=== PATIENT | male | born 1960 | race Caucasian/White ===

== ENCOUNTER 2016-12-22 00:04 | Emergency (ER) | payer OTHER ==
[2016-12-22] MEDS ORDERED: Haloperidol INJ IV/IM* 5 MG/ML AMP ONE (00:07)
[2016-12-22] MEDS ORDERED: diPHENhydraMINE IV* 50 MG/ML 1 ml VIAL (BENADRYL) ONE (00:07)
[2016-12-22] MEDS ORDERED: LORazepam INJ* 2 MG/ML 1 ML VIAL ONE (00:07)
[2016-12-22 00:30] VITALS: BP 194/77
--- NOTE | 2016-12-22 00:31 | ED ---
Meghann Gustafson SooYoung, scribed for Vito Fan MD on 12/22/16 at 0019 . Psychiatric Complaint - HPI Summary HPI Summary: LEVEL 5 CAVEAT - UNCOOPERATIVE A 56 y/o M presents to the ED brought in by police and EMS. Pt was found in parking lot of [facility], when pt arrived on scene, pt became agitated, spitting. He repeatedly hit his head against the police car. Pt brought in on 941. Pt restrained in ED. - History Of Current Complaint Time Seen by Provider: 12/22/16 00:12 Hx Obtained From: EMS, Other: - Police Onset/Duration: Still Present - Allergies/Home Medications Allergies/Adverse Reactions: Allergies Allergy/AdvReac Type Severity Reaction Status Date / Time No Known Allergies Allergy Verified 11/30/12 07:33 PMH/Surg Hx/FS Hx/Imm Hx Previously Healthy: No - Level 5 Caveat - Uncooperative Cardiovascular History: Denies: Other Cardiovascular Problems/Disorders Respiratory History: Denies: Other Respiratory Problems/Disorders GI History: Denies: Other GI Disorders Musculoskeletal History: Denies: Other Musculoskeletal History Sensory History: Reports: Hx Contacts or Glasses - GLASSES Denies: Hx Hearing Aid Opthamlomology History: Reports: Hx Contacts or Glasses - GLASSES Neurological History: Reports: Hx Headaches Denies: Other Neuro Impairments/Disorders Psychiatric History: Reports: 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. [facility], [facility], [facility] Hx Anesthesia Reactions: No - Immunization History Date of Tetanus Vaccine: refuses Date of Influenza Vaccine: refuses Infectious Disease History: Denies: Traveled Outside the [place] in Last 30 Days - Family History Family History: Level 5 Caveat - Uncooperative - Social History Alcohol Use: None Substance Use Type: Reports: None Smoking Status (MU): Never Smoked Tobacco Review of Systems - ROS Summary Review of Systems Summary: Level 5 Caveat - Uncooperative All Other Systems Reviewed And Are Negative: No Physical Exam Triage Information Reviewed: Yes Vital Signs Reviewed: Yes Appearance: Positive: Well-Appearing, No Pain Distress Head/Face: Positive: Normal Head/Face Inspection Eyes: Positive: MANI ENT: Positive: Hearing grossly normal Neck: Positive: Supple Respiratory/Lung Sounds: Positive: Clear to Auscultation, Breath Sounds Present Cardiovascular: Positive: RRR Abdomen Description: Positive: Nontender, Soft Bowel Sounds: Positive: Present Musculoskeletal: Positive: Strength/ROM Intact Neurological: Positive: Alert, Oriented to Person Place, Time Diagnostics - Laboratory Lab Statement: Any lab studies that have been ordered have been reviewed, and results considered in the medical decision making process. - CT BRAIN CT Interpretation: No Acute Changes CT Interpretation Completed By: ED Physician Re-Evaluation - Re-Evaluation First Eval Change: Improved Course/Dx - Course Course Of Treatment: Pt sedated at 0007. Brain CT is negative, will D/C. - Differential Dx/Clinical Impression Provider Diagnosis: Agitation Discharge - Discharge Plan Condition: Stable Disposition: HOME Patient Education Materials: Conduct Disorder (ED) Referrals: Darin Dover MD [Primary Care Provider] - Additional Instructions: Please return to the ED if you experience new or worsening symptoms. The documentation as recorded by the Meghann roque SooYoung accurately reflects the service I personally performed and the decisions made by me, Vito Fan MD.
--- NOTE | 2016-12-22 07:53 | RAD ---
INDICATION: Intracranial injury COMPARISON: CT brain September 04, 2003 TECHNIQUE: Noncontrast axial source images were acquired from the skull base to the vertex. FINDINGS: Ventricles/sulci: The ventricles and cisterns are normal in size and configuration for age. Brain parenchyma: There is no focal parenchymal finding, evidence of intracranial mass, or intracranial mass effect. Intracranial hemorrhage:None. Extra-axial spaces: There are no abnormal extra axial fluid collections or evidence of extra-axial mass. Calvarium: There is no calvarial fracture or other calvarial abnormality. Scalp: There is no evidence of scalp or extracalvarial soft tissue abnormality. Paranasal sinuses/mastoid: The paranasal sinuses and mastoid air cells are clear. Other: None. IMPRESSION: NEGATIVE EXAMINATION
== END 2016-12-22 06:45 | disposition home or self-care (01) ==
LOC: ED 00:04
DX: R45.1 Restlessness and agitation (principal)
CPT/HCPCS: 70450; 99285; J1200; J1630; J2060